=== PATIENT | male | born 1945 | race Caucasian/White ===

== ENCOUNTER 2017-01-24 07:38 | Day surgery (SDC) | payer MEDICARE, OTHER ==
[~2017-01-24] VITALS: Ht 170.2 cm; Wt 104.0 kg
[~2017-01-24 07:38] MED LIST: NASONEX SPRAY
[2017-01-24] MEDS ORDERED: ZYRTEC 10MG10 MG PO (08:20)
[2017-01-24] MEDS ORDERED: ALEVE 220MG220 MG PO (08:21)
[2017-01-24] MEDS ORDERED: FLONASE NASAL S16 GM NS (08:21)
[2017-01-24 08:28] VITALS: BP 130/79; PULSE 75; TEMP 97
[2017-01-24 09:50] VITALS: BP 113/80; PULSE 16; TEMP 97
[2017-01-24 10:00] VITALS: BP 127/79; PULSE 74
[2017-01-24 10:15] VITALS: BP 111/73; PULSE 72
[2017-01-24 10:31] VITALS: BP 129/79; PULSE 70
== END 2017-01-24 10:29 | disposition home or self-care (01) ==
LOC: SDCO 07:38
DX: Z12.11 Encounter for screening for malignant neoplasm of colon (principal); J45.909 Unspecified asthma, uncomplicated; Z86.010 Personal history of colon polyps
CPT/HCPCS: OP; J2250; J3010; J7030